=== PATIENT | male | born 1970 ===

== ENCOUNTER 2017-07-16 08:14 | Observation (INO) | payer OTHER ==
[2017-07-16 08:25] VITALS: BMI 28.8
[2017-07-16] MEDS ORDERED: Sodium Chloride 0.9% 1,000 ML IV STA (08:36)
--- NOTE | 2017-07-16 08:41 | ED PDOC ---
HPI: Chest Pain Time Seen by Provider: 07/16/17 08:26 Chief Complaint (Nursing): Chest Pain Chief Complaint (Provider): Chest pain History Per: Patient History/Exam Limitations: no limitations Onset/Duration Of Symptoms: Days (1 week) Additional Complaint(s): Chest pain off and on. Cough yesterday. Dyspnea yesterday. No leg pain, fever. States off and on dizzy and difficulty sleeping. Travel to [place] and came back Th. No abd pain, dysuria. No back pain, headaches. No neck pain. Has prostatitis off and on and takes cipro as needed. Past Medical History Reviewed: Nursing Documentation, Vital Signs Vital Signs: Last Vital Signs Temp 98.0 F 07/16/17 08:23 Pulse 72 07/16/17 08:23 Resp 16 07/16/17 08:23 BP 139/94 H 07/16/17 08:23 Pulse Ox 98 07/16/17 10:39 - Medical History Other PMH: prostatitis - Surgical History Surgical History: No Surg Hx - Family History Family History: States: Unknown Family Hx - Social History Current smoker - smoking cessation education provided: No Alcohol: None Drugs: Denies - Allergies Allergies/Adverse Reactions: Allergies Allergy/AdvReac Type Severity Reaction Status Date / Time No Known Allergies Allergy Verified 07/16/17 08:35 Review of Systems ROS Statement: Except As Marked, All Systems Reviewed And Found Negative Cardiovascular: Positive for: Chest Pain Respiratory: Positive for: Cough, Shortness of Breath Neurological: Positive for: Dizziness Physical Exam - Reviewed Nursing Documentation Reviewed: Yes Vital Signs Reviewed: Yes - Physical Exam Appears: Positive for: Non-toxic, No Acute Distress Head Exam: Positive for: ATRAUMATIC, NORMAL INSPECTION, NORMOCEPHALIC Skin: Positive for: Normal Color, Warm, DRY Eye Exam: Positive for: EOMI, Normal appearance, PERRL ENT: Positive for: Normal ENT Inspection Neck: Positive for: Normal, Painless ROM Cardiovascular/Chest: Positive for: Regular Rate, Rhythm. Negative for: Edema Respiratory: Positive for: CNT, Normal Breath Sounds Gastrointestinal/Abdominal: Positive for: Normal Exam, Bowel Sounds, Soft. Negative for: Tenderness Back: Positive for: Normal Inspection. Negative for: L CVA Tenderness, R CVA Tenderness Extremity: Positive for: Normal ROM. 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 Negative for: Motor/Sensory Deficits - Laboratory Results Result Diagrams: 07/16/17 08:15 07/16/17 08:15 Interpretation Of Abn Labs: no acute - ECG ECG: Positive for: Interpreted By Me, Viewed By Me ECG Rhythm: Positive for: Normal QRS, Normal ST Segment, Sinus Rhythm O2 Sat by Pulse Oximetry: 98 Pulse Ox Interpretation: Normal - Radiology X-Ray: Interpreted by Me, Viewed By Me X-Ray Interpretation: No Acute Disease - Progress ED Course And Treament: 1106: Stable. Spoke with Dr. Aponte. Will admit tele obs and give further orders when pt. reaches floor. Pt. pain controlled. Does not want any more meds. AAOx3. Disposition - Clinical Impression Clinical Impression: Chest pain - Patient ED Disposition Is Patient to be Admitted: Yes Counseled Patient/Family Regarding: Studies Performed, Diagnosis - Disposition Disposition Time: 10:30 Condition: FAIR - Pt Status Changed To: Hospital Disposition Of: Observation - POA Present On Arrival: None Core Measure Indicators: Chest Pain
[2017-07-16 09:01] LABS: BASO % 0.3 % (0.0-2.0); EOS # 0.3 K/uL (0.0-0.7); EOS % 3.4 % (0.0-4.0); HEMATOCRIT 45.4 % (35.0-51.0); LYMPH # 1.2 K/uL (1.0-4.3); LYMPH % 14.8 % (20.0-40.0); MEAN CELL VOLUME 93.4 fl (80.0-94.0); MEAN CORPUSCULAR HEMOGLOBIN 32.3 pg (27.0-31.0); MEAN CORPUSCULAR HGB CONC 34.6 g/dL (33.0-37.0); MEAN PLATELET VOLUME 7.4 fl (7.2-11.7); MONO # 0.8 K/uL (0.0-0.8); MONO % 10.2 % (0.0-10.0); NEUT # 5.8 K/uL (1.8-7.0); NEUT % 71.3 % (50.0-75.0); NRBC % 0.1 % (0.0-0.0); RED CELL DISTRIBUTION WIDTH 13.5 % (11.5-14.5); WHITE BLOOD COUNT 8.1 K/uL (4.8-10.8)
[2017-07-16 09:14] LABS: ALB/GLOB RATIO 1.3 (1.0-2.1); ALKALINE PHOSPHATASE 63 U/L (38-126); ALT/SGPT 51 U/L (21-72); AST/SGOT 36 U/L (17-59); BILIRUBIN,TOTAL 0.6 mg/dl (0.2-1.3); BLOOD UREA NITROGEN 14 mg/dl (9-20); CALCIUM 9.6 mg/dL (8.4-10.2); CARBON DIOXIDE 24 mmol/L (22-30); CHLORIDE 107 mmol/L (98-107); GFR AFRICAN-AMERICAN > 60; GLUCOSE,RANDOM 98 mg/dL (75-110); LIPASE 146 U/L (23-300); POTASSIUM 4.2 MMOL/L (3.6-5.0); SODIUM 142 mmol/l (132-148); TOTAL PROTEIN 7.9 G/DL (6.3-8.2)
[2017-07-16 09:15] LABS: PARTIAL THROMBOPLASTIN TIME 30.1 Seconds (25.6-37.1)
--- NOTE | 2017-07-16 13:00 | RAD ---
HISTORY: dyspnea COMPARISON: No prior. FINDINGS: LUNGS: No active pulmonary disease. PLEURA: No significant pleural effusion identified, no pneumothorax apparent. CARDIOVASCULAR: Normal. OSSEOUS STRUCTURES: No significant abnormalities. VISUALIZED UPPER ABDOMEN: Normal. OTHER FINDINGS: None. IMPRESSION: No active disease.
--- NOTE | 2017-07-16 14:15 | CP.PCM.CON ---
History of Present Illness - History of Present Illness History of Present Illness: THE PATIENT IS A 47 YEAR OLD MALE WHO HAS A HISTORY OF GERDS, ANXIETY AND CHRONIC PROSTATITIS. HE NOW COMPLAINS OF VARIOUS SYMPTOMS FOR A FEW DAYS TO A FEW WEEKS INCLUDING COUGHING, NECK PAIN, ABDOMINAL GAS AND LEFT ARM DISCOMFORT ON AND OFF. HE TOLD THE ER PHYSICIAN THAT HE HAD CHEST PAIN SO HE WAS ADMITTED TO OBSERVATION AND CARDIOLOGY WAS ASKED TO SEE HIM. BUT THEN TOLD ME IT MAY HAVE BEEN THROAT PAIN FROM HIS COUGHING OR GAS DISCOMFORT FROM HIS GERDS. HE DOES NOT DESCRIBE TYPICAL CHEST PAIN TO ME. HE DENIES NAUSEA, VOMITING OR DIAPHORESIS. IT IS OF NOTE THAT HE FLEW BACK FROM A VACATION TO [place] TWO DAYS AGO. HIS MOTHER ALSO HAD CABGS AND A VALVE REPLACEMENT IN HER 70'S. Past Patient History - Past Social History Alcohol: None Drugs: Denies - CARDIAC Hx Cardiac Disorders: No - PULMONARY Hx Respiratory Disorders: No - NEUROLOGICAL Hx Neurological Disorder: No - HEENT Hx HEENT Problems: No - RENAL Hx Chronic Kidney Disease: No - ENDOCRINE/METABOLIC Hx Endocrine Disorders: No - HEMATOLOGICAL/ONCOLOGICAL Hx Blood Disorders: No - INTEGUMENTARY Hx Dermatological Problems: No - MUSCULOSKELETAL/RHEUMATOLOGICAL Hx Musculoskeletal Disorders: No - GENITOURINARY/GYNECOLOGICAL Hx Genitourinary Disorders: No - PSYCHIATRIC Hx Psychophysiologic Disorder: No - SURGICAL HISTORY Hx Surgeries: Yes Hx Appendectomy: Yes - ANESTHESIA Hx Anesthesia: Yes Meds Allergies/Adverse Reactions: Allergies Allergy/AdvReac Type Severity Reaction Status Date / Time No Known Allergies Allergy Verified 07/16/17 08:35 Physical Exam - Respiratory Exam Respiratory Exam: Clear to Auscultation Bilateral - Cardiovascular Exam Cardiovascular Exam: REGULAR RHYTHM, +S1, +S2 - Extremities Exam Extremities exam: Positive for: normal inspection Additional comments: RAMA'S SIGN NEGATIVE BILAT - Additional Findings Additional findings: EKG NSR FIRST TROPONIN IS NEGATIVE Results - Vital Signs Recent Vital Signs: Last Vital Signs Temp 98.2 F 07/16/17 12:35 Pulse 72 07/16/17 12:35 Resp 18 07/16/17 12:35 BP 154/99 H 07/16/17 12:35 Pulse Ox 97 07/16/17 12:35 - Labs Result Diagrams: 07/16/17 08:15 07/16/17 08:15 Labs: Laboratory Results - last 24 hr 07/16/17 07/16/1707/16/17 08:15 08:15 08:30 WBC 8.1 RBC 4.86 Hgb 15.7 Hct 45.4 MCV 93.4 MCH 32.3 H MCHC 34.6 RDW 13.5 Plt Count 251 MPV 7.4 Neut % (Auto) 71.3 Lymph % (Auto) 14.8 L [place] % (Auto) 10.2 H Eos % (Auto) 3.4 Baso % (Auto) 0.3 Neut # 5.8 Lymph # 1.2 [place] # 0.8 Eos # 0.3 Baso # 0.0 PT 11.3 INR 1.0 APTT 30.1 D-Dimer, Quantitative 123 Sodium 142 Potassium 4.2 Chloride 107 Carbon Dioxide 24 Anion Gap 15 BUN 14 Creatinine 1.0 Est GFR ( Amer) > 60 Est GFR (Non-Af Amer) > 60 Random Glucose 98 Calcium 9.6 Total Bilirubin 0.6 AST 36 ALT 51 Alkaline Phosphatase 63 Troponin I < 0.0120 Total Protein 7.9 Albumin 4.5 Globulin 3.4 Albumin/Globulin Ratio 1.3 Lipase 146 Assessment & Plan - Assessment and Plan (Free Text) Assessment: CHEST PAIN FREE AT THE PRESENT TIME. HIS CHEST PAIN IS QUESTIONABLE TO ME AT BEST NECK DISCOMFORT ANXIETY GERDS FAMILY HISTORY OF CAD Plan: THE PATIENT RECEIVED O2, ASPIRIN AND PEPCID IN THE ER ASPIRIN, O2 AND ROBITUSSIN DM WERE ORDERED BUT NO OTHER MEDICINES WERE ORDERED THE PATIENT HAS QUESTIONABLE CHEST PAIN HE WAS ADMITTED TO N ON TELEMETRY SERIAL EKGS AND TROPONINS THE PATIENT CAN BE DISCHARGED TOMORROW FROM THE [facility] IF HIS EKG AND TROPONINS ARE ALL NORMAL AND HE CAN HAVE AN OUT PATIENT ECHO AND STRESS TEST
[2017-07-16] MEDS ORDERED: guaiFENesin DM 100 mg-10 mg/5 ml UD PO PRN (14:41)
[2017-07-16] MEDS: Amoxicillin-Clav 875-125 mg Tab PO SCH (21:58)
[2017-07-17 06:23] VITALS: RESP 18
[2017-07-17] MEDS ORDERED: Aspirin 325 mg EC Tablets PO SCH (09:00)
--- NOTE | 2017-07-17 09:03 | CARD ---
APPROVED REPORT EKG Measurement Heart [id number] 160P6 [id number] <Conclusion> Normal sinus rhythm Normal ECG
[2017-07-17] MEDS: Amoxicillin-Clav 875-125 mg Tab PO SCH (09:05)
[2017-07-17 12:48] VITALS: BP 126/86; PULSE 65; TEMP 98.5; O2SAT 98
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
--- NOTE | 2017-07-18 08:41 | CARD ---
APPROVED REPORT EKG Measurement Heart [id number] [id number] [id number] <Conclusion> Normal sinus rhythm with sinus arrhythmia Normal ECG
== END 2017-07-17 13:40 | disposition home or self-care (01) ==
LOC: H.ER 08:14 → H.TEL 11:04
PROVIDERS: ADMIT Family Medicine Geriatric Medicine; ATTEND Family Medicine Geriatric Medicine
DX: R07.9 Chest pain, unspecified (principal); J06.9 Acute upper respiratory infection, unspecified; H65.90 Unspecified nonsuppurative otitis media, unspecified ear; F41.9 Anxiety disorder, unspecified; K21.9 Gastro-esophageal reflux disease without esophagitis; N41.9 Inflammatory disease of prostate, unspecified; Z82.49 Family history of ischemic heart disease and other diseases of the circulatory system
CPT/HCPCS: 71010; 80053; 83690; 84484; 85025; 85378; 85610; 85730; 93005; 96374; 99285; G0378; J7040